=== PATIENT | male | born 1950 | race Caucasian/White ===

== ENCOUNTER → 2022-08-26 13:35 | Outpatient (BNVA) | payer MEDICARE, SELFPAY | PROVIDERS: PCP Family Medicine; Visit Provider Surgery | DX: K40.90 Unilateral inguinal hernia, without obstruction or gangrene, not specified as recurrent (principal) | CPT/HCPCS: 99203 ==

== ENCOUNTER 2022-09-27 05:53 | Day surgery (SDC) | payer MEDICARE, SELFPAY ==
[2022-09-24 12:37] VITALS: BMI 26.0
[2022-09-27] VITALS (9 sets, daily range): BP systolic 118–158; BP diastolic 68–101; PULSE 49–65; RESP 16–20; TEMP 36.5–36.6; O2SAT 96–100
[2022-09-27] MEDS: acetaminophen 1,000 MG/100 ML PIGGYBACK 400 MG IV (06:29)
[2022-09-27] MEDS: sodium chloride 0.9% 1,000 ML 30 ML IV (06:30)
--- NOTE | 2022-09-27 06:34 | ANES.PREANE2 ---
Pre-Anesthetic Assessment Height/Weight: Height 1.88 m Weight 92.079 kg Temp Pulse Resp BP Pulse Ox O2 Del Method 97.9 F 65 16 158/101 97 09/27/22 06:04 09/27/22 06:04 09/27/22 06:04 09/27/22 06:04 09/27/22 06:04 09/27/22 06:17 Preop Diagnosis: Right groin hernia Operation Date: 09/27/22 07:00 Proposed Procedures p [address]95 -lap right sided inguinal hernia repair with mesh - possible open K40.90(Right) - Minh Moscoso MD Familial anesthetic complications: none Was Beta Franny taken within 24 hours: N/A Was Clonidine taken within 24 hours: N/A Last intake: Intake Last Liquid Date 09/27/22 Last Liquid Time 19:30 Last Solid Date 09/26/22 Last Solid Time 19:30 Social Alcohol (2 beers a night) and No tobacco Exam alert, oriented x 3, clear to auscultation bilaterally and regular rate & rhythm Airway Mallampati: Class II Dentition: full and other (crowns) CV/HEM Hypertension Metabolic Thyroid Disease Anesthetic Plan ASA status: 2 Anesthesia: General Risk of > 500 ml blood loss (7ml/kg in children): No Medications/Allergies Home Medications Medication Instructions Recorded Confirmed Last Taken Type irbesartan 75 mg tablet 75 mg PO DAILY 08/26/22 09/24/22 09/26/22 History levothyroxine 75 mcg capsule 75 mcg PO DAILY 08/26/22 09/24/22 09/26/22 History Allergies Allergy/AdvReac Type Severity Reaction Status Date / Time No Known Allergies Allergy Verified 09/24/22 12:32 Current Medications Generic Name Dose Route Start Last Admin Trade Name Freq PRN Reason Stop Dose Admin Sodium Chloride 1,000 mls @ 30 mls/hr 09/27/22 06:15 09/27/22 06:30 Sodium Chloride 0.9% IV 09/28/22 06:14 30 mls/hr .Q24H ANDI Administration PFSH Anesthesia Social History Smoking and tobacco status: never smoked Data Anesthesia Cardiac Studies: No Data to Display
--- NOTE | 2022-09-27 06:37 | W.PM.OPSFHP ---
Same Day Surgery H&P Indication for Procedure/HPI DATE OF PROCEDURE: September 27, 2022 CHIEF COMPLAINT/INDICATIONFOR SURGICAL PROCEDURE: I have a hernia on my right side PREOP DIAGNOSIS: Right groin hernia PLANNED PROCEDURE: Operation Date: 09/27/22 07:00 Proposed Procedures p 17002 -lap right sided inguinal hernia repair with mesh - possible open K40.90(Right) - Minh Moscoso MD 08/26/22 This is a pleasant 72 years old gentleman with history of reducible right groin hernia that started bothering him more.? Patient was referred to my practice for further evaluation potential intervention.? Denies any signs or symptoms of bowel obstruction. Interval history 09/27/2022 Patient comes today for laparoscopic right inguinal hernia repair possible open ROS All systems have been reviewed negative except as for the above or per problem list. Medications/Allergies* Home Medications Medication Instructions Recorded Confirmed Type irbesartan 75 mg tablet 75 mg PO DAILY 08/26/22 09/24/22 History levothyroxine 75 mcg capsule 75 mcg PO DAILY 08/26/22 09/24/22 History Allergies/Adverse Reactions Allergy/AdvReac Type Severity Reaction Status Date / Time No Known Allergies Allergy Verified 09/27/22 06:38 Current Medications: Generic Name Dose Route Start Last Admin Trade Name Freq PRN Reason Stop Dose Admin Sodium Chloride 1,000 mls @ 30 mls/hr 09/27/22 06:15 09/27/22 06:30 Sodium Chloride 0.9% IV 09/28/22 06:14 30 mls/hr .Q24H ANDI Administration Pertinent History/Comorbid Conditions* Social History Smoking and tobacco status: never smoked Pertinent Exam Findings alert, oriented x 3, regular rate & rhythm, operative site marked (Right groin hernia) and procedure specific exam findings (Reducible right groin hernia) Recommendations Surgery/Procedure today (Laparoscopic right inguinal hernia repair with mesh placement possible open) Coding Level of Care Code Acute Classified Copy Control Clerk for Lexy Looney
--- NOTE | 2022-09-27 06:38 | ECG_ITS ---
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 [id number]
[2022-09-27] MEDS: ceFAZolin 2,000 MG in sodium chloride 0.9% (plus) 50 ML 100 MG IV (06:58)
[2022-09-27 06:59] LABS: Anion Gap 13.7 (5-19); Blood Urea Nitrogen 18 mg/dL (8-23); Calcium 9.3 mg/dL (8.5-10.5); Carbon Dioxide 25 mmol/L (22-29); Chloride 105 mmol/L (98-107); Creatinine Clr Calc Pharmacy 72.8808; Glucose 97 mg/dL (65-115); Osmolality Calculated 292 mOsm/kg (285-295); Potassium 3.7 mmol/L (3.5-5.1); Sodium 140 mmol/L (136-145)
--- NOTE | 2022-09-27 08:16 | SUR.OPER ---
spoke with regarding incidental finding of left inguinal hernia at dr. ohara' request. stated to proceed with planned procedure.
--- NOTE | 2022-09-27 08:34 | P.OP_ITS ---
Operative Report Date of procedure: September 27, 2022 Pre-op diagnosis: Preop Diagnosis Right groin hernia Procedure done: 1-Laparoscopic right inguinal hernia repair with mesh placement 2-Laparoscopic excision of lipoma of the cord Implants: Right 3D mesh large size Specimens removed/disposition: Lipoma of the cord Surgeon: Minh Moscoso MD Marketing Effectiveness Manager: Surgical concepcion Lowe Circulating nurse Lilly Anesthesia: General (aeronautical products sales engineer Shantel) Estimated blood loss (mL): 10 IV fluids (mL): 700 Urine output (mL): 200 Disposition: PACU Procedure: Patient was identified in the holding area ,patient was transferred to the operating room where he was placed in supine position, with both arms were tucked, antibiotic was given with induction, endotracheal tube was placed per anesthesia, Spann catheter was inserted by the circulating nurse and revealed clear urine, prep and drape of the abdomen was done under the usual sterile technique as well as the scrotal area. Time-out was done verifying the patient's name/date of /planned procedure destination after the procedure, all were in agreement. SCDs confirmed to be functioning, preoperative antibiotics administered per protocol, and beta milan protocol was confirmed. A vertical skin incision of 1.2 cm was made with 11 blade knife through the supra umbilicus,incision was carried down to the subcutaneous tissue and deepened to identify the anterior fascia, two stay sutures were applied to the fascia, and safe entrance to the abdominal cavity was achieved, a Mcintyre trocar technique safe entry to the abdominal cavity was achieved verified by using 10 mm zero degree laparoscopy, switched to a 30 degrees scope,low flow followed by a higher flow of CO2 gas up to 15 mmHg. There was no evidence of injury to intra-abdominal structures from the port entry, attention was deviated to both groins, there was a large direct hernia defect with herniation of peritoneum and preperitoneal fat was noted on the right side, two 5 mm ports were placed on the right and left lateral aspect of the abdomen slightly above the level of the umbilicus, under direct visualization, anesthesia 2% lidocaine local was injected at all trocar sites prior to incisions. The peritoneum above the level of the iliopubic tract was incised to the right of the midline and dissection was performed to create a preperitoneal space medial to lateral aspect up to anterior superior iliac spine on the right side. Dissection was continued onto the medial aspect and the right spermatic was identified, there was evidence of direct inguinal hernia .the sac was dissected. As it applied medial to the right inferior epigastric vessels/ dissection was performed to clear the space lateral to the spermatic cord and dorsomedial to it, the hernia sac was reduced and retracted far back, so there was an evidence of lipoma of the cord that was excised and sent for permanent pathology. Then a large right 3-D mesh was rolled and placed into the abdominal cavity through the Mcintyre port, after the mesh was introduced it was positioned to lie in the myopectineal orifice and the mesh was unrolled and this covered the entire my myope pectineal orifice. Intra-abdominal pressure was dropped to 12 mmHg to help placement of the mesh good position On the lateral aspect of the mesh extended up to the anterior superior iliac spine on the medial aspect the mesh crossed the midline onto the left side, then using absorbable tacks, placed above the iliopubic tract onto the rectus abdominis muscle on the medial aspect and also to the lateral abdominal wall superomedial to the sacroiliac spine, then the mesh was also anchored to the pubis and the Miguel A's ligament inferiorly. The peritoneal leaflets were then b rought together to cover the mesh and isolated from the other viscera, extra tacks were used to secure the peritoneum in good position. Final look demonstrated good hemostasis and the mesh in good position There was an incidental finding of a small left groin hernia out evidence of any bowel incarceration also, the patient was asymptomatic at this point I elected to ask my circulating nurse to get a hold of patient's and she decided that he would not be in agreement to proceed since he was not having symptoms with it he would rather wait to recover from this procedure today and may proceed down the road. Patient spouse's wishes were respected. A total of 20 mL Exparel 40 ml Normal saline 20 ml bupivacaine 0.25% were injected at the remaining of the tacks site and trocar sites as well Final look demonstrated good hemostasis.Then the fascia on the supra umbilical fascial defect was closed using #1 PDS sutures under direct visualization using fascial closure device Gordo Dill.All ports were removed,then the abdomen was desufflated. All skin incisions were closed with 4-0 Monocryl subcuticular suture and Dermabond was applied. The patient tolerated the procedure well, Spann catheter was taken out,scrotal support was provided ,got extubated and was transferred to the recovery area in stable condition. All counts of instruments, needles and sponges were completed I was present for the whole entire procedure
--- NOTE | 2022-09-27 08:58 | SUR.PHASEI ---
0848 PT TO PACU 5 PT AWAKE ALERT ORIENTED X 3 C/O OF LOWER ABDOMEN PAIN, SEE PAIN MED GIVEN BY INDUCTION MACHINE OPERATOR, IV PATENT TO RT WRIST 300ML NS AT KVO RATE PER GRAVITY, ID BRACELET TO LT WRIST PT ID'D WITH 2 IDENTIFIERS ABDOMEN IS SOFT WITH 3 SITES WITH SKIN GLUE TO ABDOMEN D/I MONITOR SR WITH NO ECTOPY, VSS. PT DENIES COLD AND NAUSEA, WARM BLANKET TO PT ON ADMIT.
[2022-09-27] MEDS: HYDROcodone-acetaminophen 5-325 mg Tablet 1 TAB PO (09:30)
--- NOTE | 2022-09-27 14:25 | ANE.PACU2 ---
Inpatient post-anesthesia follow up: Airway intact: Yes Vital signs: Temperature 97.7 F Pulse Rate 57 Respiratory Rate 18 Blood Pressure 119/76 Pulse Oximetry 98 Oxygen Delivery Me thod Room Air Oxygen Flow Rate 8 Fraction of Inspir ed Oxygen Hydration adequate: Yes Nausea and vomiting: No Pain level: 1 Mental status: Baseline
== END 2022-09-27 10:05 | disposition home or self-care (01) ==
PROVIDERS: PCP Family Medicine; Visit Provider Surgery
PROC: (CPT 49650; principal; 2022-09-27 07:00)
DX: K40.90 Unilateral inguinal hernia, without obstruction or gangrene, not specified as recurrent (principal); D17.6 Benign lipomatous neoplasm of spermatic cord; I10 Essential (primary) hypertension
CPT/HCPCS: 49650; 51702; 80048; 88304; 93005; C1781; C9290; J0131; J0690; J1100; J2370; J2405; J2710; J3010; J3490; J7030

== ENCOUNTER → 2022-10-04 13:48 | Outpatient (BNVA) | payer MEDICARE, SELFPAY | PROVIDERS: PCP Family Medicine; Visit Provider Surgery | DX: Z09 Encounter for follow-up examination after completed treatment for conditions other than malignant neoplasm (principal) | CPT/HCPCS: 99024 ==

== ENCOUNTER 2023-01-25 09:08 | Outpatient (CLI) | payer MEDICARE, SELFPAY ==
--- NOTE | 2023-01-25 09:31 | MR_ITS ---
WS: [id number] MRI BRAIN WITHOUT CONTRAST HISTORY: TIA COMPARISON: None available. TECHNIQUE: Diffusion imaging, multiplanar T1, T2 and FLAIR imaging obtained. Diffusion imaging is normal. No acute infarct. Extensive T2 and FLAIR signal hyperintensities through out the white matter beginning at the vertex and extending confluently surrounding the lateral ventri cles. Additional patchy and confluent subcortical white matter lesions. Cerebellum is negative. Mild small vessel ischemic disease in the jeremiah. No prior large territory infarct. Ventricles and extra-axial spaces are normal. No inferior displacement of cerebellar tonsils. The sella turcica and pituitary gland are unremarkabl e. Dural venous sinuses and [place] demonstrate no abnormality on this unenhanced studies. Paranasal sinuses: Very mild mucoperiosteal thickening throughout the paranasal sinuses. No air-fluid levels. Mastoid air cells: Normal. Calvarium and scalp: Intact. MR/MR head wo con* [id number] IMPRESSION: 1. No acute infarct. No hemorrhage. 2. Moderate to severe confluent and patchy small vessel ischemic disease. More than typically seen for this age group. Etiologies to consider are from long-t erm hypertension, diabetes, smoking history and atherosclerosis.
== END 2023-01-25 09:09 | disposition home or self-care (01) ==
PROVIDERS: PCP Family Medicine; Visit Provider Family Medicine
DX: G45.9 Transient cerebral ischemic attack, unspecified (principal)
CPT/HCPCS: 70551

== ENCOUNTER → 2024-03-19 12:43 | Outpatient (BNVA) | payer MEDICARE, SELFPAY | PROVIDERS: PCP Family Medicine; Visit Provider Nurse Practitioner Family | DX: D48.5 Neoplasm of uncertain behavior of skin (principal); L30.9 Dermatitis, unspecified; L82.1 Other seborrheic keratosis; D36.11 Benign neoplasm of peripheral nerves and autonomic nervous system of face, head, and neck; Q83.3 Accessory nipple | CPT/HCPCS: 11102; 99202 ==

== ENCOUNTER → 2025-03-19 13:17 | Outpatient (BNVA) | payer MEDICARE, SELFPAY | PROVIDERS: PCP Family Medicine; Visit Provider Nurse Practitioner Family | DX: E85.4 Organ-limited amyloidosis (principal); D36.11 Benign neoplasm of peripheral nerves and autonomic nervous system of face, head, and neck; Q83.3 Accessory nipple; L57.8 Other skin changes due to chronic exposure to nonionizing radiation; L81.4 Other melanin hyperpigmentation; D22.5 Melanocytic nevi of trunk; L57.0 Actinic keratosis | CPT/HCPCS: 17000; 99213 ==